=== PATIENT | female | born 1960 | race Caucasian/White ===

== ENCOUNTER 2021-03-22 11:57 | Outpatient (CLI) | payer BC ==
[2021-03-23 11:54] LABS: SARS-CoV-2 PCR by NAA Not Detected (NotDetected)
== END 2021-03-22 11:58 | disposition home or self-care (01) ==
LOC: CSHLAB 11:57
PROVIDERS: ATTEND Internal Medicine Pulmonary Disease
DX: Z01.812 Encounter for preprocedural laboratory examination (principal); Z20.822 Contact with and (suspected) exposure to COVID-19
CPT/HCPCS: U0003; U0005

== ENCOUNTER 2021-03-27 15:06 | Outpatient (CLI) | payer BC | END 2021-03-27 15:07 | disposition home or self-care (01) | LOC: CSHCT 15:06 | PROVIDERS: ATTEND Internal Medicine Pulmonary Disease | DX: R06.02 Shortness of breath (principal) | CPT/HCPCS: 71275; 94060; 94726; 94729; 94760 ==